=== PATIENT | male | born 1990 | race Caucasian/White ===

== ENCOUNTER 2019-03-29 07:39 | Emergency (ER) | payer SELFPAY ==
[~2019-03-29] VITALS: Ht 165.1 cm; Wt 73.0 kg
[~2019-03-29 07:39] MED LIST: CIPR500T87 PO; TRAM-47 PO
[2019-03-29 07:43] VITALS: BP 143/90
[2019-03-29] MEDS ORDERED: CEFTRIAXONE 250 MG IM ONE (08:00)
[2019-03-29] MEDS ORDERED: AZITHROMYCIN 500 MG TABLET PO ONE (08:00)
--- NOTE | 2019-03-29 08:55 | NUR ---
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
--- NOTE | 2019-03-29 09:11 | NUR ---
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
--- NOTE | 2019-03-29 09:50 | NUR ---
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
== END 2019-03-29 09:51 | disposition left against medical advice (07) ==
LOC: ED 09:45
DX: R36.9 Urethral discharge, unspecified (principal)
CPT/HCPCS: 87491; 87591; 99283